=== PATIENT | female | born 1940 | race Caucasian/White ===

== ENCOUNTER 2017-08-28 19:02 | Emergency (ER) | payer OTHER ==
[~2017-08-28] VITALS: Ht 157.5 cm; Wt 82.7 kg
[2017-08-28 20:24] LABS: HEMATOCRIT 32.6 % (36.0-46.0); MCH 27.5 PG (29.0-34.0); MCHC 31.9 G/DL (30.0-36.0); MCV 86.2 FL (83-99); MEAN PLAT.VOLUME 9.1 uM^3 (9.5-12.4); PLATELET COUNT 364 K/uL (156-360); RBC DIS.WIDTH-CV 18.6 % (11.8-14.6); RBC DIS.WIDTH-SD 55.4 % (39-53); RED BLOOD COUNT 3.78 M/uL (3.80-5.20); WHITE BLOOD COUNT 8.4 K/uL (4.1-10.2)
[2017-08-28 20:33] LABS: CHLORIDE 92 mEq/L (99-109); POTASSIUM 3.1 mEq/L (3.7-5.4); SODIUM 130 mEq/L (136-147)
[2017-08-28 20:35] LABS: GLUCOSE 134 mg/dL (70-99)
[2017-08-28 20:36] LABS: ANION GAP 13 MEQ/L (2-14)
[2017-08-28 20:38] LABS: GFR ESTIMATE (CALCULATED) > 59 mL/min/
[2017-08-28 20:39] LABS: UREA NITROGEN (BUN) 9 mg/dL (9-23)
[2017-08-28] MEDS ORDERED: ROXICODONE5 MG PO (22:48)
[2017-08-28 23:44] VITALS: BP 158/83
== END 2017-08-29 | disposition home or self-care (01) ==
LOC: EME 19:02
PROVIDERS: Emergency Medicine
DX: G89.18 Other acute postprocedural pain (principal); M79.602 Pain in left arm; Z91.81 History of falling; I10 Essential (primary) hypertension; E78.5 Hyperlipidemia, unspecified; I69.354 Hemiplegia and hemiparesis following cerebral infarction affecting left non-dominant side; Z79.01 Long term (current) use of anticoagulants
CPT/HCPCS: 73060; 80048; 85027; 93971; 99281; 99285; J2270; J2405